=== PATIENT | male | born 1995 | race Caucasian/White ===

== ENCOUNTER 2021-12-18 01:17 | Emergency (ER) | payer OTHER ==
[2021-12-18 01:32] VITALS: BP 130/54; PULSE 95; TEMP 97.9; BMI 24.6
== END 2021-12-18 01:31 | disposition home or self-care (01) ==
LOC: FER 01:17
DX: F10.920 Alcohol use, unspecified with intoxication, uncomplicated (principal)
CPT/HCPCS: 99283-25